=== PATIENT | female | born 1950 | race Caucasian/White ===

== ENCOUNTER 2023-05-17 21:26 | Emergency (ER) | payer MEDICARE, OTHER | END 2023-05-17 22:05 | disposition home or self-care (01) | LOC: ERS 21:26 | DX: S61.031A Puncture wound without foreign body of right thumb without damage to nail, initial encounter (principal); I10 Essential (primary) hypertension; K21.9 Gastro-esophageal reflux disease without esophagitis; W27.3XXA Contact with needle (sewing), initial encounter; Z79.899 Other long term (current) drug therapy ==